=== PATIENT | female | born 1985 | race Caucasian/White ===

== ENCOUNTER 2017-04-09 19:51 | Emergency (ER) | payer OTHER ==
[~2017-04-09] VITALS: Ht 162.6 cm; Wt 45.5 kg
[2017-04-09 19:53] VITALS: BP 115/81; PULSE 78; RESP 15; O2SAT 100
--- NOTE | 2017-04-09 21:58 | ED.REPORT ---
HPI-Eye Problem Date of Service Apr 09, 2017 ED Provider: Luis Adams MD The pt is a 31 y/o female presenting to the ED complaining of R eye swelling onset three hours ago. She reports eating "a lot" of nectarines today. Nursing Notes Stated Complaint: SWOLLEN RIGHT EYE Chief Complaint: Eye Nursing Notes Reviewed: Yes Allergies: Coded Allergies: cefaclor (Verified Allergy, Mild, Hives, 04/09/17) General Time Seen by MD: 21:57 Chief Complaint Swelling (R eye ) Hx Obtained From: Patient Arrived By: Walk-in Sudden in Onset?: Yes Onset Occurred: 1 - 4 hours ago Symptom Duration: Since onset Recent Healthcare: No recent doctor visit, No recent hospitalization Similar Sx Previous: No Past Medical History Past Medical History None reported Past Surgical History None reported Social History None reported Ambulatory Status Independent Review of Systems Skin: Reports Swelling (R eye ) Complete sys rev & neg: except as marked. Physical Exam Initial Vital Signs Vital Signs (First) Date Time Temp Pulse Resp B/P Pulse Ox O2 Delivery O2 Flow Rate FiO2 04/09/17 19:53 37.1 78 15 115/81 100 Room Air Initial VS: Reviewed, Vital signs normal General / Const: Well-developed, Well-nourished ENT: Mucous membranes moist, Conjunctiva normal, No scleral icterus Neck: Supple, Non-tender, Full range of motion Respiratory: Breath sounds normal, Clear to auscultation, No respiratory distress Cardiovascular: Regular rate & rhythm, Heart sounds normal, Intact distal pulses Extremities: Vascular intact, Neuro intact, No swelling, No tenderness Skin: Warm, Dry, No cyanosis Neurologic: Alert, Oriented, Nonfocal Psychiatric: Mood/affect normal, Behavior normal, Normal thought content Head / Eyes: Normocephalic Chemosis of the R eye w/ injection No swelling of the eyelid Mild in left Moderate in R Vision is normal Re-Eval/Medical Decision Med Decision/Clinical Course 31-year-old female with a history of allergies presents with swelling of her right eye. There is actually chemosis of both eyes, worse on the right. She was given Naphcon-A topical decongestant and antihistamine. Follow up with her regular doctor. Re-Evaluation/Progress : Time of Eval: 22:10 Re-Evaluation/Progress Note: Pt rechecked. Informed pt of plan for treatment. Pt understands and agrees with plan for treatment. F/U instructions and RTER warnings given. All questions addressed. Counseled Regarding: Diagnosis, Need for follow-up, When/why to return to ED Discharge & Departure Primary Impression: Allergic conjunctivitis Laterality: bilateral Qualified Code: H10.13 - Acute atopic conjunctivitis, bilateral Disposition: Home Discharge Condition All VS Reviewed: Yes Condition: Stable Patient Instructions: Allergies (ED) Additional Instructions: The swelling of your eyeball is an allergic response. Topical Naphcon-A will help to decrease the swelling and stop the allergic response. Follow-up with your regular doctor. Referrals: [facility] Scribe Attestation Portions of this note were transcribed by Eduard Lamas. I, Dr. Adams personally performed the history, physical exam and medical decision-making; I reviewed and confirmed the accuracy of the information in the transcribed note. Signed by : Kathie Farrell, 04/09/17 and 2221. copies to: [facility] Luis Adams MD Apr 09, 2017 21:57 Eduard Lamas Apr 09, 2017 22:17
[2017-04-09] MEDS ORDERED: Naphazoline/Pheniramine 5 mL Ophthalmic Solution RIGHT_EYE SCH (22:15)
[2017-04-09] MEDS ORDERED: Naphazoline/Pheniramine 5 mL Ophthalmic Solution RIGHT_EYE PRN (22:15)
[2017-04-09 22:27] VITALS: BP 117/80; PULSE 75; RESP 15; O2SAT 100
== END 2017-04-09 22:28 | disposition home or self-care (01) ==
LOC: SED 19:51
DX: H10.13 Acute atopic conjunctivitis, bilateral (principal); Z88.1 Allergy status to other antibiotic agents